=== PATIENT | male | born 1970 | race Caucasian/White ===

== ENCOUNTER 2019-02-03 01:05 | Emergency (ER) | payer OTHER ==
[2019-02-03 01:12] VITALS: BP 110/74; PULSE 77; TEMP 98.5; BMI 27.2
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
--- NOTE | 2019-02-03 12:43 | PDOC ---
Patient Follow-up (Call Back) - Post ED Follow - Up Condition at time of discharge: Stable Disposition at time of original discharge: HOME Reason for Call Back: Radiology (Call received from Dr. Varela about a rib fracture on the L side. Was noted by provider overnight and treated.)
== END 2019-02-03 02:10 | disposition home or self-care (01) ==
LOC: FER 01:05
DX: S22.39XA Fracture of one rib, unspecified side, initial encounter for closed fracture (principal); F17.210 Nicotine dependence, cigarettes, uncomplicated; X58.XXXA Exposure to other specified factors, initial encounter; Y93.89 Activity, other specified; Y92.89 Other specified places as the place of occurrence of the external cause
CPT/HCPCS: 71046-TC-FY; 71101-TC-LT-FY; 99282-25

== ENCOUNTER 2023-03-21 06:35 | Emergency (ER) | payer OTHER ==
[2023-03-21 06:43] VITALS: BP 125/82; PULSE 113; RESP 19; TEMP 98.8; BMI 26.2
[2023-03-21] MEDS ORDERED: ALBUTEROL SO4 2.5/IPRATROPIUM 0.5 INH SOL 3 ML VIAL.NEB. NEB ONE ×2 (06:51→06:53)
== END 2023-03-21 07:23 | disposition home or self-care (01) ==
LOC: FER 06:35
PROC: 3E0F7GC Introduction of Other Therapeutic Substance into Respiratory Tract, Via Natural or Artificial Opening (ICD-10-PCS; principal; 2023-03-21)
DX: J40 Bronchitis, not specified as acute or chronic (principal); R05.9 Cough, unspecified; R50.9 Fever, unspecified; R09.81 Nasal congestion
CPT/HCPCS: 71046-TC-FY; 99283-25